=== PATIENT | male | born 1985 | race Caucasian/White ===

== ENCOUNTER 2019-09-20 05:14 | Emergency (ER) | payer OTHER ==
[~2019-09-20] VITALS: Ht 175.3 cm; Wt 122.5 kg
[2019-09-20] MEDS ORDERED: AUGMENTIN 875-1 EACH PO (07:26)
[2019-09-20] MEDS ORDERED: NORCO 5-325 TA1 EAC1 PO (07:29)
[2019-09-20 07:37] VITALS: BP 137/75
== END 2019-09-20 07:40 | disposition home or self-care (01) ==
LOC: ER 05:14
DX: S61.412A Laceration without foreign body of left hand, initial encounter (principal); F17.210 Nicotine dependence, cigarettes, uncomplicated; Z88.2 Allergy status to sulfonamides; W34.09XA Accidental discharge from other specified firearms, initial encounter; Y93.89 Activity, other specified; Y92.89 Other specified places as the place of occurrence of the external cause; Y99.8 Other external cause status

== ENCOUNTER 2020-07-01 10:07 | Emergency (ER) | payer OTHER ==
[~2020-07-01] VITALS: Ht 175.3 cm; Wt 124.7 kg
[~2020-07-01 10:07] MED LIST: AUGMENTIN 875-1 EACH PO; NORCO 5-325 TA1 EAC1 PO
[2020-07-01] MEDS ORDERED: IBUPROFEN 800800 MG PO (11:20)
[2020-07-01 12:00] VITALS: BP 145/68
== END 2020-07-01 12:00 | disposition home or self-care (01) ==
LOC: ER 10:07
DX: S93.401A Sprain of unspecified ligament of right ankle, initial encounter (principal); F17.210 Nicotine dependence, cigarettes, uncomplicated; Z88.2 Allergy status to sulfonamides; Z79.899 Other long term (current) drug therapy; X50.1XXA Overexertion from prolonged static or awkward postures, initial encounter; Y93.89 Activity, other specified; Y92.89 Other specified places as the place of occurrence of the external cause; Y99.8 Other external cause status